=== PATIENT | female | born 1930 | race Caucasian/White ===

== ENCOUNTER 2018-05-08 14:01 | Emergency (ER) | payer MEDICARE, MEDICAID ==
[~2018-05-08] VITALS: Ht 152.4 cm; Wt 49.9 kg
[~2018-05-08 14:01] MED LIST: Acetaminophen PO; CLOP75TA15 PO; DEXL60CA3 PO; FAMO20TA8 PO; MULT1TAB73 PO; PRIM50TA PO; ROSU10TA PO
[2018-05-08] MEDS ORDERED: ERGO1TAB10 PO (14:21)
[2018-05-08] MEDS ORDERED: ERGO500040 PO (14:21)
--- NOTE | 2018-05-08 14:25 | NUR ---
Dr luis inserted pily to Lt nares, no acute bleeding noted. Pt tolorated well.
[2018-05-08] MEDS ORDERED: EPINEPHRINE 1 MG/1 ML AMP ONE (14:28)
[2018-05-08] MEDS ORDERED: EPINEPHRINE-PF 1:1000 1 MG/ML AMPUL IV ONE (14:30)
[2018-05-08 14:49] LABS: BASOPHILS % (AUTO) 0.4 % (0.0-2.0); HEMOGLOBIN 9.3 g/dL (10.9-14.3); LYMPHOCYTES # (AUTO) 1.4 K/uL (20.0-40.0); LYMPHOCYTES % (AUTO) 25.1 % (20.5-51.5); MEAN CORPUSCULAR HEMOGLOBIN 25.3 uug (24.7-32.8); MEAN CORPUSCULAR HGB CONC 33 g/dL (32.3-35.6); MEAN CORPUSCULAR VOLUME 76.8 fL (75.5-95.3); MONOCYTES # (AUTO) 0.4 K/uL (2.0-10.0); MONOCYTES % (AUTO) 7.2 % (0.0-11.0); NEUTROPHILS # (AUTO) 3.8 K/uL (1.8-8.9); NEUTROPHILS % (AUTO) 67.3 % (38.5-71.5); PLATELET COUNT (AUTO) 232 K/uL (179-408); RED BLOOD CELL COUNT(AUTO) 3.65 MIL/uL (3.63-4.92); WHITE BLOOD COUNT (AUTO) 5.7 K/uL (3.8-11.8)
--- NOTE | 2018-05-08 15:25 | NUR ---
Pt has no more bleeding w/ packing in place. Patient discharged to home in stable conditon. Written and verbal after care instructions given. Patient verbalizes understanding of instructions. Pt left ER w. steady gait accompained by son.
[2018-05-08 15:27] VITALS: BP 151/89
== END 2018-05-08 15:30 | disposition home or self-care (01) ==
LOC: ER 14:01
DX: R04.0 Epistaxis (principal); E78.5 Hyperlipidemia, unspecified; I10 Essential (primary) hypertension; Z88.0 Allergy status to penicillin; Z88.6 Allergy status to analgesic agent; Z79.01 Long term (current) use of anticoagulants; Z79.899 Other long term (current) drug therapy
CPT/HCPCS: 30901; 36415; 85025; 85610; 99284; A4663; J0171